=== PATIENT | female | born 1955 | race American Indian/Alaskan Native ===

== ENCOUNTER 2018-03-22 10:53 | Emergency (ER) | payer OTHER ==
--- NOTE | 2018-03-22 11:43 | Emergency Department Report ---
Blank Doc - Documentation Documentation: Patient is a 63-year-old female past medical history hypertension and high cholesterol who is presenting with some altered mental status. Patient is a bike rider however she went on a bike ride was a little longer for her today. Patient had been R bike for approximately 2-1/2 miles and started having some mild confusion. Patient is here with his station installation supervisor who witnessed the episode. Patient was repeating the same thing over and over and cannot remember if she dropped her grandson off at daycare this morning. Patient and his station installation supervisor states that she had no slurred speech or any motor or sensory dysfunction. Just that she was seems exhausted and was having some issues with her short- term memory. Patient denies any headache nausea vomiting. She was profusely sweating after the bike ride. Patient now states she feels much improved she's had several bottles of water in the interim. Patient states she feels as though she is at baseline her station installation supervisor states she seems to be back to baseline at this time as well. Patient will be taken to a treatment room or have IV fluids will check labs and head CT. Patient will be reassessed
[2018-03-22] MEDS ORDERED: NACL 0.9% 1000 ML 1,000 ML IV ONE (11:44)
--- NOTE | 2018-03-22 12:06 | Cat Scan Report ---
CT HEAD WITHOUT CONTRAST: HISTORY: Confusion. TECHNIQUE: Sequential 2.5mm CT images. COMPARISON: none. FINDINGS: Cerebral Parenchyma: Within normal limits. Cerebellum: Within normal limits. Brainstem: Within normal limits. Ventricles: Normal. Sella: Normal. Extra-axial spaces: Normal. Basal Cisterns: Normal. Intracranial Hemorrhage: None. Midline Shift: None. Calvarium: Normal. Sinuses: Normal. Mastoid Air Cells: Normal. Visualized Orbits: Normal. IMPRESSION: Cranial CT scan within normal limits.
[2018-03-22 12:10] LABS: Basophils % (Auto) 0.6 % (0.0-1.8); Eosinophils % (Auto) 0.1 % (0.0-4.3); Hematocrit 43.3 % (30.3-42.9); Hemoglobin 14.4 gm/dl (10.1-14.3); Mean Corpuscular HGB Conc 33 % (30-34); Mean Corpuscular Hemoglobin 30 pg (28-32); Mean Corpuscular Volume 90 fl (79-97); Monocytes # (Auto) 0.2 K/mm3 (0.0-0.8); Monocytes % (Auto) 4.2 % (0.0-7.3); Platelet Count 219 K/mm3 (140-440); Red Blood Count 4.81 M/mm3 (3.65-5.03); Red Cell Distribution Width 13.8 % (13.2-15.2)
[2018-03-22 12:11] LABS: BUN/Creatinine Ratio 16; Blood Urea Nitrogen 14 mg/dL (7-17); Calcium 9.2 mg/dL (8.4-10.2); Hemolysis Index 57
--- NOTE | 2018-03-22 14:04 | Emergency Department Report ---
ED Altered Mental Status HPI - General Chief Complaint: Neuro Symptoms/Deficit Stated Complaint: CONFUSION/HTN Time Seen by Provider: 03/22/18 11:34 Source: patient Mode of arrival: Ambulatory Limitations: No Limitations - History of Present Illness Initial Comments: Patient is a 63-year-old female past medical history hypertension and high cholesterol who is presenting with some altered mental status. Patient is a bike rider however she went on a bike ride was a little longer for her today. Patient had been R bike for approximately 2-1/2 miles and started having some mild confusion. Patient is here with his solar panel installation supervisor who witnessed the episode. Patient was repeating the same thing over and over and cannot remember if she dropped her grandson off at daycare this morning. Patient and his solar panel installation supervisor states that she had no slurred speech or any motor or sensory dysfunction. Just that she was seems exhausted and was having some issues with her short- term memory. Patient denies any headache nausea vomiting. She was profusely sweating after the bike ride. Patient now states she feels much improved she's had several bottles of water in the interim. Patient states she feels as though she is at baseline her solar panel installation supervisor states she seems to be back to baseline at this time as well. - Related Data Allergies Allergy/AdvReac Type Severity Reaction Status Date / Time No Known Allergies Allergy Unverified 03/22/18 11:09 ED Review of Systems ROS: Stated complaint: CONFUSION/HTN Other details as noted in HPI Comment: All other systems reviewed and negative ED Past Medical Hx - Past Medical History Previous Medical History?: Yes Hx Hypertension: Yes - Social History Smoking Status: Never Smoker Substance Use Type: None ED Physical Exam - General Limitations: No Limitations General appearance: alert, in no apparent distress - Head Head exam: Present: atraumatic, normocephalic - Eye Eye exam: Present: normal appearance - ENT ENT exam: Present: mucous membranes moist - Neck Neck exam: Present: normal inspection - Respiratory Respiratory exam: Present: normal lung sounds bilaterally. Absent: respiratory distress, wheezes, rales, rhonchi - Cardiovascular Cardiovascular Exam: Present: regular rate, normal rhythm. Absent: systolic murmur, diastolic murmur, rubs, gallop - GI/Abdominal GI/Abdominal exam: Present: soft, normal bowel sounds. Absent: distended, tenderness, guarding, rebound - Extremities Exam Extremities exam: Present: normal inspection - Back Exam Back exam: Present: normal inspection - Neurological Exam Neurological exam: Present: alert, oriented X3, CN II-XII intact, normal gait, motor sensory deficit, reflexes normal - Psychiatric Psychiatric exam: Present: normal affect, normal mood - Skin Skin exam: Present: warm, dry, intact, normal color. Absent: rash - Level of Consciousness 1a. Level of Consciousness: alert - LOC Questions 1b. LOC Questions: answers correctly - LOC Command 1c. LOC Commands: performs tasks correctly - Best Gaze 2. Best Gaze: normal - Visual 3. Visual: no visual loss - Facial Palsy 4. Facial Palsy: normal symmetrical movement - Motor Arm 5b. Motor Arm Right: no drift 5a. Motor Arm Left: no drift - Motor Leg 6a. Motor Leg Left: no drift 6b. Motor Leg Right: no drift - Limb Ataxia 7. Limb Ataxia: absent - Sensory 8. Sensory: normal - Best Language 9. Best Language: no aphasia - Dysarthria 10. Dysarthria: normal - Extinction and Inattention 11. Extinction/Inattention: no abnormality - Scoring Total Score: 0 Stroke Severity: No Stroke Symptoms ED Course Vital Signs 03/22/18 11:02 Temperature 97.9 F Pulse Rate 101 H Respiratory 16 Rate Blood Pressure 179/94 O2 Sat by Pulse 100 Oximetry - Lab Data Result diagrams: 03/22/18 11:50 03/22/18 11:50 Lab Results 03/22/18 03/22/18 Range/Units 11:50 11:50 WBC 5.8 (4.5-11.0) K/mm3 RBC 4.81 (3.65-5.03) M/mm3 Hgb 14.4 H (10.1-14.3) gm/dl Hct 43.3 H (30.3-42.9) % MCV 90 (79-97) fl MCH 30 (28-32) pg MCHC 33 (30-34) % RDW 13.8 (13.2-15.2) % Plt Count 219 (140-440) K/mm3 Lymph % (Auto) 18.0 (13.4-35.0) % Izard % (Auto) 4.2 (0.0-7.3) % Eos % (Auto) 0.1 (0.0-4.3) % Baso % (Auto) 0.6 (0.0-1.8) % Lymph # 1.0 L (1.2-5.4) K/mm3 Izard # 0.2 (0.0-0.8) K/mm3 Eos # 0.0 (0.0-0.4) K/mm3 Baso # 0.0 (0.0-0.1) K/mm3 Seg Neutrophils % 77.1 H (40.0-70.0) % Seg Neutrophils # 4.4 (1.8-7.7) K/mm3 Sodium 133 L (137-145) mmol/L Potassium 3.2 L (3.6-5.0) mmol/L Chloride 92.4 L (98-107) mmol/L Carbon Dioxide 24 (22-30) mmol/L Anion Gap 20 mmol/L BUN 14 (7-17) mg/dL Creatinine 0.9 (0.7-1.2) mg/dL Estimated GFR > 60 ml/min BUN/Creatinine Ratio 16 % Glucose 94 (65-100) mg/dL Calcium 9.2 (8.4-10.2) mg/dL - Radiology Data CT of the head without contrast shows no acute process - Medical Decision Making Patient received IV fluids is feeling much improved. The patient did have some hyponatremia draw her laboratory studies. Patient will be discharged home at this time. Critical care attestation.: If time is entered above; I have spent that time in minutes in the direct care of this critically ill patient, excluding procedure time. ED Disposition Clinical Impression: Hyponatremia, Dehydration Disposition: DC-01 TO HOME OR SELFCARE Is pt being admited?: No Does the pt Need Aspirin: No Condition: Stable Instructions: Dehydration (ED) Referrals: PRIMARY CARE, [Primary Care Provider] - 3-5 Days
[2018-03-22 14:20] VITALS: BP 172/86
== END 2018-03-22 14:28 | disposition home or self-care (01) ==
LOC: ED 10:53
DX: E87.1 Hypo-osmolality and hyponatremia (principal); E86.0 Dehydration; I10 Essential (primary) hypertension
CPT/HCPCS: 36415; 70450; 80048; 85025; 96360; 99284; J7030